=== PATIENT | female | born 1945 | race African-American/Black ===

== ENCOUNTER 2023-12-22 10:49 | Observation (INO) | payer MEDICARE ==
[2023-12-23 12:18] VITALS: BP 164/87
== END 2023-12-23 17:43 | disposition home or self-care (01) ==
LOC: CSHERS 10:49 → SUATTDRO 10:49 → CSHERHOLD 17:51
PROVIDERS: ADMIT Internal Medicine; ATTEND Internal Medicine
DX: R56.9 Unspecified convulsions (principal); E11.65 Type 2 diabetes mellitus with hyperglycemia; I10 Essential (primary) hypertension; E78.5 Hyperlipidemia, unspecified
CPT/HCPCS: 70450; 70551; 80053; 80061; 81001; 82962 ×2; 83036; 83605; 83735; 84146; 85025; 96375; 96376; G0378 ×2; J1650; J1953 ×2; J3475; 36415; 36416; 84443; 96374; J1815